=== PATIENT | male | born 1965 | race Caucasian/White ===

== ENCOUNTER → 2020-04-09 | Outpatient (REF) | payer BC ==
[2020-04-11 16:07] LABS: Lyme Disease IgG/IgM Antibodie <0.91 ISR (0.00-0.90); Lyme Disease IgM Ab Quantitati <0.80 index (0.00-0.79)
== END ==
LOC: M LAB REF 16:20
PROVIDERS: ATTEND Physician Assistant Medical
DX: Z11.59 Encounter for screening for other viral diseases (principal)

== ENCOUNTER → 2020-05-22 | Outpatient (REF) | payer BC | LOC: M LAB REF 12:20 | PROVIDERS: ATTEND Registered Nurse | DX: I82.401 Acute embolism and thrombosis of unspecified deep veins of right lower extremity (principal) ==

== ENCOUNTER → 2021-04-21 | Outpatient (REF) | payer BC | LOC: M LAB REF 16:43 | PROVIDERS: ATTEND Internal Medicine | DX: E78.00 Pure hypercholesterolemia, unspecified (principal) ==

== ENCOUNTER → 2021-10-26 | Outpatient (REF) | payer OTHER, BC ==
[2021-10-28 08:10] LABS: LDL DIRECT 134 mg/dL (0-99)
== END ==
LOC: M LAB REF 12:12
PROVIDERS: ATTEND Internal Medicine
DX: E78.2 Mixed hyperlipidemia (principal)

== ENCOUNTER → 2022-04-07 | Outpatient (CLI) | payer OTHER | LOC: M PLARAD 14:49 | PROVIDERS: ATTEND Internal Medicine | DX: M51.16 Intervertebral disc disorders with radiculopathy, lumbar region (principal); M51.44 Schmorl's nodes, thoracic region; M25.78 Osteophyte, vertebrae; M48.061 Spinal stenosis, lumbar region without neurogenic claudication ==

== ENCOUNTER → 2023-08-07 | Outpatient (REF) | payer OTHER | LOC: M LAB REF 12:07 | PROVIDERS: ATTEND Internal Medicine | DX: E07.9 Disorder of thyroid, unspecified (principal); D51.9 Vitamin B12 deficiency anemia, unspecified ==

== ENCOUNTER → 2023-09-11 | Outpatient (CLI) | payer OTHER | LOC: M RAD 12:12 | PROVIDERS: ATTEND Internal Medicine | DX: M79.661 Pain in right lower leg (principal); M79.662 Pain in left lower leg ==

== ENCOUNTER → 2024-11-22 | Outpatient (REF) | payer OTHER | LOC: M LAB REF 12:14 | PROVIDERS: ATTEND Internal Medicine | DX: N52.9 Male erectile dysfunction, unspecified (principal); R68.82 Decreased libido ==